=== PATIENT | female | born 1990 | race African-American/Black ===

== ENCOUNTER 2021-01-30 15:54 | Emergency (ER) | payer OTHER ==
[~2021-01-30 15:54] MED LIST: BENTYL10 MG PO; NAPROSYN375 MG PO; NAPROXEN500 MG PO; NORCO 5-325 TA1 EACH PO; TUSSIN COUGH15 MG PO; ULTRAM50 MG PO; ZOFRAN4 MG SL
[2021-01-30] MEDS ORDERED: MEDROL 4MG DOSEP4 MG PO (18:34)
[2021-01-30] MEDS ORDERED: CYCLOBENZAPRINE10 MG PO (18:34)
== END 2021-01-30 18:51 | disposition home or self-care (01) ==
LOC: FER 15:54
DX: S39.012A Strain of muscle, fascia and tendon of lower back, initial encounter (principal); X50.1XXA Overexertion from prolonged static or awkward postures, initial encounter
CPT/HCPCS: 72100; J1100

== ENCOUNTER 2021-07-10 10:13 | Emergency (ER) | payer OTHER ==
[~2021-07-10 10:13] MED LIST changes: +CYCLOBENZAPRINE10 MG PO; +MEDROL 4MG DOSEP4 MG PO
[2021-07-10 10:56] LABS: BASOPHIL 1.6 % (0-2); EOSINOPHIL 6.7 % (0-5); HCT 39.4 % (37.0-47.0); HGB 13.5 g/dl (12.5-16.0); LYMPHOCYTE 24.1 % (15-48); MCH 27.7 pg (25.0-31.0); MCHC 34.3 g/dL (32.0-36.0); MCV 80.7 fL (78.0-100.0); MONOCYTE 6.5 % (0-12); MPV 11.4 fL (6.0-9.5); NEUTROPHIL 60.9 % (41-80); NRBC 0; PLT 287 K/uL (150-400); RBC 4.88 M/uL (4.20-5.40); RDW 13.2 % (11.5-14.0); WBC 8.4 K/uL (4.0-10.5)
[2021-07-10 11:28] LABS: ALBUMIN 3.7 g/dL (3.4-5.0); BILIRUBIN - TOTAL 1.9 mg/dL (0.2-1.0); BUN/CREAT RATIO (CALC) 17.7 RATIO; CREATININE 0.62 mg/dL (0.51-0.95); GLOBULIN (CALCULATION) 3.6 g/dL; POTASSIUM 3.4 mmol/L (3.5-5.1); TOTAL PROTEIN 7.3 g/dL (6.4-8.2)
== END 2021-07-10 12:22 | disposition home or self-care (01) ==
LOC: FER 10:13
PROVIDERS: Emergency Medicine
DX: R07.89 Other chest pain (principal); F17.200 Nicotine dependence, unspecified, uncomplicated; W50.0XXA Accidental hit or strike by another person, initial encounter
CPT/HCPCS: 36415; 71045; 80053; 84484; 85025; 93005; J1885